=== PATIENT | female | born 1945 | race Caucasian/White ===

== ENCOUNTER 2023-07-30 06:51 | Day surgery (SDC) | payer MEDICARE, OTHER ==
[~2023-07-30] VITALS: Ht 165.1 cm; Wt 99.0 kg
[2023-07-30] VITALS (7 sets, daily range): BP systolic 120–173; BP diastolic 63–75; PULSE 50–52; TEMP 97.6
[2023-07-30] MEDS ORDERED: NS Flush 10 ML SYRINGE PRN ICA (07:15)
[2023-07-30] MEDS ORDERED: 1/2 NS 1,000 ML IV SCH (07:15)
[2023-07-30 07:52] LABS: HEMOGLOBIN 11.7 g/dl (12.5-16.0); MEAN CELL VOLUME 92 fl (80.0-100.0); MEAN CORPUSCULAR HEMOGLOBIN 30 pg (27-31); MEAN CORPUSCULAR HGB CONC 32 g/dl (33.0-37.0); MEAN PLATELET VOLUME 8.9 fl (7.4-10.4); PLATELET COUNT 286 K/mm3 (130-400); RED BLOOD COUNT 3.92 M/mm3 (4.10-5.30)
[2023-07-30 07:57] LABS: HEMATOCRIT 36.1 % (37.0-47.0)
[2023-07-30] MEDS ORDERED: SPIRIVA RE2.5 MCG/Ac IH (07:59)
[2023-07-30] MEDS ORDERED: SYNTHROID0.125 MG/T PO (07:59)
[2023-07-30 08:00] LABS: INR 2.2 (0.8-3.0); PROTHROMBIN TIME 22.9 SECONDS (9.7-12.8)
[2023-07-30] MEDS ORDERED: LASIX 20MG TABL20 MG PO (08:00)
[2023-07-30] MEDS ORDERED: CELEXA40 MG PO (08:00)
[2023-07-30] MEDS ORDERED: TOPROL XL 50MG50 MG PO (08:02)
[2023-07-30] MEDS ORDERED: ZAROXOLYN5 MG PO (08:02)
[2023-07-30] MEDS ORDERED: COUMADIN 5MG5 MG/TAB PO (08:03)
[2023-07-30] MEDS ORDERED: MULTIPLE VITAMI1 CAP PO (08:04)
[2023-07-30] MEDS ORDERED: OMEGA-3 1000 MG1 CAP PO (08:05)
[2023-07-30] MEDS ORDERED: NATURAL POTASS595 MG PO (08:05)
[2023-07-30] MEDS ORDERED: VITAMIN D31000 I1 PO (08:06)
[2023-07-30] MEDS ORDERED: VITAMIN B-6100 MG PO (08:06)
[2023-07-30] MEDS ORDERED: THE MEDICINE S200 M2 PO (08:07)
[2023-07-30] MEDS ORDERED: MAGNESIUM GLYC100 MG PO (08:09)
[2023-07-30] MEDS ORDERED: L-THEANINE200 MG PO (08:09)
[2023-07-30] MEDS ORDERED: DETROL LA4 PO (08:10)
[2023-07-30] MEDS ORDERED: COLESTID 1GM1 G PO (08:11)
[2023-07-30 08:16] LABS: CALCIUM 9.2 mg/dL (8.4-10.2); CREATININE, serum 0.82 mg/dL (0.57-1.11); POTASSIUM 4.9 mEq/L (3.5-4.5)
[2023-07-30] MEDS ORDERED: Lidocaine PF 2% (20 MG/ML) 5 ML VIAL ONE (08:45)
[2023-07-30] MEDS ORDERED: NS Flush 10 ML SYRINGE BID ICA SCH (09:00)
--- NOTE | 2023-07-30 09:43 | NUR ---
PATIENT ALERT AND ORIENTED, VITAL SIGNS STABLE. PATIENT DENIES PAIN OR NAUSEA. STRONG PRODUCTIVE COUGH NOTED, CLEARS SECRETIONS INDEPENDENTLY. ENCOURAGED COUGHING AND DEEP BREATHING EXERCISES. FAMILY BROUGHT TO BEDSIDE, AWAITING UPDATE FROM PROVIDER. BED PLACED TO LOWEST POSITION, X3 BEDRAILS IN PLACE, CALL LIGHT WITHIN REACH.
--- NOTE | 2023-07-30 12:17 | NUR ---
pt tolerated recovery period well and vs remained within normal limits. IV discontinued upon discharge and pt verbalized understanding of discharge instructions. pt assisted to main lobby via wheelchair and was accompanied by daughter and . pt verbalized that she had no pain upon discharge.
== END 2023-07-30 11:30 | disposition home or self-care (01) ==
LOC: COL.CAR 06:51
PROVIDERS: Internal Medicine Cardiovascular Disease
DX: I35.0 Nonrheumatic aortic (valve) stenosis (principal); I10 Essential (primary) hypertension; I48.20 Chronic atrial fibrillation, unspecified; Z95.2 Presence of prosthetic heart valve; Z79.01 Long term (current) use of anticoagulants
CPT/HCPCS: J2704